=== PATIENT | female | born 1980 | race Caucasian/White ===

== ENCOUNTER 2016-06-04 04:59 | Inpatient (IN) ==
[2016-06-04] MEDS ORDERED: KEFZOL 1 GM/D5W 1 GM/50 ML IVPB IV PRN (05:01)
[2016-06-04] MEDS ORDERED: LR 1,000 ML IV SCH ×2 (05:01→12:05)
[2016-06-04] MEDS ORDERED: REGLAN PO ONE (05:01)
[2016-06-04] MEDS ORDERED: PEPCID PO ONE (05:01)
[2016-06-04] MEDS ORDERED: BICITRA PO ONE ×4 (06:15→06:45)
[2016-06-04] MEDS ORDERED: PEPCID IV ONE (06:15)
[2016-06-04] MEDS ORDERED: HEMABATE ONE (06:16)
[2016-06-04] MEDS ORDERED: METHERGINE ONE (06:17)
[2016-06-04 06:30] LABS: MANUAL DIFF NEEDED? NO
[2016-06-04] MEDS ORDERED: DURAMORPH ONE (06:30)
[2016-06-04] MEDS ORDERED: FENTANYL ONE (06:30)
[2016-06-04] MEDS ORDERED: PITOCIN 20 UNITS/LR 20 UNITS/1,000 ML IV.SOLN ONE (06:30)
[2016-06-04] MEDS ORDERED: TORADOL ONE (06:30)
[2016-06-04] MEDS ORDERED: ZOFRAN ONE (06:30)
[2016-06-04] MEDS ORDERED: PITOCIN ONE ×2 (06:30→07:29)
[2016-06-04] MEDS ORDERED: BENADRYL ONE (06:30)
[2016-06-04 06:32] LABS: BASO% 0.2 % (0.0-0.8); EOS# 0.09 X1000 (0.0-0.7); EOS% 0.8 % (0.0-10.0); HEMOGLOBIN 11.7 g/dL (12.0-16.0); IMM GRAN# 0.15 X1000 (0.0-0.04); IMM GRAN% 1.4 % (0.0-0.5); LYMPH# 1.44 X1000 (1.2-3.4); MCH 30.3 PG (27-31); MCHC 32.5 g/dL (33-37); MCV 93.3 FL (81-99); MONO% 7.2 % (1.7-9.3); MPV 11.7 FL (7.4-10.4); NEUT% 77.4 % (42.2-75.2); PLT 110 X1000 (130-400); RBC 3.86 XMIL (4.2-5.4)
[2016-06-04] MEDS ORDERED: STADOL ONE (06:45)
[2016-06-04] MEDS ORDERED: VERSED ONE (06:46)
--- NOTE | 2016-06-04 07:08 | HISTORY AND PHYSICAL ---
CHIEF COMPLAINT: Here for scheduled section. HISTORY OF PRESENT ILLNESS: Patient is a 35-year-old, G2, P1-0-0-1 at 39 weeks and 4 days by her last menstrual period consistent with an early ultrasound with a due date of , who is here today for planned repeat . She had an elective primary in 2010 due to the macrosomia, and this baby is also measuring large. Patient has no complaints at this time other than significant anxiety. She denies contractions, vaginal bleeding, or loss of fluid. The baby is moving well. PAST MEDICAL HISTORY: 1. Significant for anxiety disorder with no medical treatment. 2. History of nephrolithiasis. 3. Blood type Rh negative, RhoGAM given on 03/22/2016. 4. Anemia of . PAST SURGICAL HISTORY: 1. x1 in 2010. 2. Oral surgery. [place] teeth were removed in 2013. OB HISTORY: 1. 1 prior delivery, 01/04/2011 which was at [address] Andrade. He was 9 pounds 9 ounce male, no complications. PODIATRY ASSISTANT HISTORY: 10/28/2014 Pap smear negative with high risk HPV negative. ALLERGY: No known drug allergies. MEDICATIONS: vitamins and Fusion Plus FAMILY HISTORY: None. SOCIAL HISTORY: She lives with her spouse and son. 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 Alcohol use denies. Drug use denies. High School level of education, high school graduate. Marital status is , and tobacco use never smoker. REVIEW OF SYSTEMS: Positive only for anxiety. PHYSICAL EXAM: VITAL SIGNS: Afebrile with stable vital signs. NST is reactive and reassuring. GENERAL: Patient is awake, alert, and oriented. In no acute distress. CHEST: Clear to auscultation bilaterally. CARDIOVASCULAR: Regular rate and rhythm. ABDOMEN: Soft, gravid, and nontender with a well-healed Pfannenstiel incision. The cervical exam was deferred. EXTREMITIES: 1+ trace to 1+ pitting edema. LABS: From her , group B Strep is negative. Quad screen was low risk. Blood type was Rh negative. She got RhoGAM. Hemoglobin/hematocrit in March was 10.7 and 32.1. Current hemoglobin/hematocrit is 11.7 and 36.0. ASSESSMENT AND PLAN: Gail is a 35-year-old, G2, P-1-0-0-1, at 39 weeks and 4 day for scheduled section. The risks of the surgery reviewed including, but not limited to, bleeding, infection, injury to other organs, possibility of blood clots and blood transfusion, risk of anesthesia, hysterectomy and . Patient stated understanding and desires to proceed. She plans to have circumcision for her baby boy and we are ironer or presser to the OR. cc: Hina Lancaster MD MTDD
[2016-06-04] MEDS ORDERED: NEO-SYNEPHRINE ONE (07:29)
[2016-06-04] MEDS ORDERED: PITOCIN IM PRN (08:09)
[2016-06-04] MEDS ORDERED: DEMEROL IM PRN (08:09)
[2016-06-04] MEDS ORDERED: AMBIEN PO PRN (08:09)
[2016-06-04] MEDS ORDERED: HYDROXYZINE IM PRN (08:09)
[2016-06-04] MEDS ORDERED: BOOSTRIX VACCINE IM ONE (08:09)
[2016-06-04] MEDS ORDERED: DULCOLAX PR PRN ×2 (08:09→12:08)
[2016-06-04] MEDS ORDERED: PITOCIN 20 UNITS/LR 20 UNITS/1,000 ML IV.SOLN IV ONE ×2 (08:09→12:08)
[2016-06-04] MEDS ORDERED: MOTRIN PO PRN (08:09)
[2016-06-04] MEDS ORDERED: PERCOCET-5 PO PRN (08:09)
[2016-06-04] MEDS ORDERED: CYTOTEC PO PRN (08:09)
[2016-06-04] MEDS ORDERED: MYLICON PO PRN (08:09)
[2016-06-04] MEDS ORDERED: DEMEROL PO PRN ×2 (08:09)
[2016-06-04] MEDS ORDERED: M-M-R II VACCINE SUBQ ONE (08:09)
[2016-06-04] MEDS ORDERED: PERCOCET-10 PO PRN (08:09)
[2016-06-04] MEDS ORDERED: PHENERGAN IM PRN (08:09)
[2016-06-04] MEDS ORDERED: HYDROXYZINE PO PRN ×2 (08:09→12:05)
[2016-06-04] MEDS ORDERED: PITOCIN 10 UNITS/LR 10 UNIT/1,000 ML IV.SOLN IV SCH (08:15)
[2016-06-04 08:16] LABS: URINE SOURCE VOIDED
[2016-06-04] MEDS ORDERED: ZOFRAN ODT PO PRN (08:31)
[2016-06-04] MEDS ORDERED: ZOFRAN IV PRN ×3 (08:31→12:05)
[2016-06-04] MEDS ORDERED: NARCAN INJ PRN (08:31)
[2016-06-04 08:32] LABS: BILIRUBIN URINE NEGATIVE (NEGATIVE); BLOOD URINE NEGATIVE (NEGATIVE); CLARITY CLEAR (CLEAR); COLOR YELLOW; GLUCOSE URINE NEGATIVE (NEGATIVE); LEUKOCYTES URINE TRACE (NEGATIVE); NITRITE URINE NEGATIVE (NEGATIVE); PROTEIN URINE NEGATIVE (NEGATIVE); UROBILINOGEN URINE NORMAL
[2016-06-04] MEDS ORDERED: MYLICON PO SCH (09:00)
[2016-06-04] MEDS ORDERED: PHENERGAN IV ONE (09:31)
[2016-06-04] MEDS ORDERED: SODIUM CHLORIDE 0.9% INJ ONE (09:31)
[2016-06-04] MEDS: PRECARE PO SCH (10:06)
--- NOTE | 2016-06-04 10:42 | OPERATIVE NOTE ---
PROCEDURE DATE: 06/04/2016 PREPROCEDURE DIAGNOSES: 1. 2 para 1-0-0-1 at 39 weeks and 4 days. 2. Prior section x1. 3. Desires repeat section. POSTOPERATIVE DIAGNOSES: 1. 2 para 2, status post repeat low uterine transverse section. 2. Pelvic adhesions to lower uterine segment. PROCEDURE PERFORMED: Repeat low uterine transverse with lysis of adhesions. SURGEON: Dr. Hina Lancaster. BRAKE SPECIALIST SURGEON: Dr. Lawson Olvera and Kaylan, Medical Student. ANESTHESIA: Spinal. FINDINGS: There were filmy and dense adhesions of the lower pelvic peritoneum and the bladder to the uterus. There was clear fluid upon amnion rupture. Male infant in vertex presentation weighing 8 pounds 11 ounces with Apgars 8 at one minute, 9 at five minutes. Otherwise normal- appearing uterus, tubes, and ovaries. COMPLICATIONS: None. ESTIMATED BLOOD LOSS: 700 mL. SPECIMENS: Placenta was discarded. DRAINS: Ramos with clear urine at the end of the case. DESCRIPTION OF PROCEDURE: The patient was taken to the operating room where she was properly prepped and draped in the normal sterile fashion in the dorsal supine position. Adequate anesthesia was noted and a Pfannenstiel skin incision was made through the patient's previous scar, and carried down to the underlying layer of fascia sharply. Fascia was incised in the midline and extended laterally with Wilkins scissors. Terry clamps x2 were then used to elevate the superior aspect of the fascial incision and the rectus muscles were dissected off sharply. Attention was then turned to the inferior aspect of the fascial incision. The rectus muscles were dissected off in a similar manner. The peritoneum at this time was then tented up and entered sharply. The peritoneum was stretched, and filmy as well as dense adhesions were noted on the lower aspect of the uterine incision. These were tented up, and bluntly and sharply dissected without any complications. Once the bladder blade was inserted, the low segment was able to be visualized and a transverse incision was made with a scalpel. Copious clear fluid was noted upon amnion rupture. The low segment was extended digitally and the baby was then delivered from a vertex presentation without any complications. Baby was bulb suctioned. Cord was clamped and cut, and the baby was handed off to the waiting nursery staff. Cord blood was obtained and the placenta was then massaged from the uterus. Uterus was exteriorized, cleared of all clots and debris, and the uterine incision was closed with a #1 chromic in a running, locked fashion. A cuiram-yj-jueod suture was then used to approximately midline to help maintain hemostasis. Once this was done, the uterus was tilted forward. The abdomen was cleared of clots and debris. The uterus was tilted back and returned to the abdomen. The gutters were cleared of all clots and debris. The peritoneum was started to be closed with a 2-0 Polysorb. We noted a little bit more blood in the abdomen so the peritoneal closure was stopped and attention was then turned to the low segment again. There was three reinforcing [id number] sutures placed along the uterine incision and then excellent hemostasis was noted. There were a few small bleeders on the posterior side of the adhesions that were taken down. Decision was made to place some Gelfoam in there after the area was irrigated. Small Bovie coagulation was used as well. Once satisfied with hemostasis, the rectus muscles were noted to be too far apart to attempt closure so the fascia was then closed with a #1 PDS starting from each apex and tying [id number] in the midline. The wound at this time was then copiously irrigated and maintained hemostatic with the Bovie. Four interrupted sutures of 2-0 plain gut were then used to reapproximate the subcutaneous tissues. The skin was closed with a 4-0 Biosyn on a [place] needle. Patient tolerated the procedure well. All sponge, lap, and needle counts were correct x3. The patient went to recovery in stable condition. cc: Hina Lancaster MD
[2016-06-04] MEDS: BENADRYL IV PRN ×2 (11:16→11:54)
[2016-06-04] MEDS ORDERED: NARCAN 0.4 MG in LR 1,000 ML IV PRN (12:05)
[2016-06-04] MEDS ORDERED: NARCAN IV PRN (12:05)
[2016-06-04] MEDS ORDERED: SODIUM CHLORIDE 0.9% INJ PRN (12:05)
[2016-06-04] MEDS ORDERED: PHENERGAN IV PRN (12:05)
[2016-06-04] MEDS ORDERED: BENADRYL IV PRN (12:05)
[2016-06-04] MEDS: MYLICON PO SCH ×3 (15:27→21:00)
[2016-06-04] MEDS: HYDROXYZINE PO PRN ×2 (18:03→23:52)
[2016-06-04] MEDS: PITOCIN 10 UNITS/LR 10 UNIT/1,000 ML IV.SOLN IV SCH (20:59)
[2016-06-04] MEDS ORDERED: PERICOLACE PO SCH (21:00)
[2016-06-05] MEDS: PITOCIN 10 UNITS/LR 10 UNIT/1,000 ML IV.SOLN IV SCH (04:56)
[2016-06-05] MEDS: MOTRIN PO PRN ×3 (04:57→20:22)
[2016-06-05] MEDS: NORCO-5 PO PRN ×3 (04:57→16:48)
[2016-06-05] MEDS: MYLICON PO PRN ×3 (04:57→11:02)
[2016-06-05 05:48] LABS: MANUAL DIFF NEEDED? NO
[2016-06-05 05:56] LABS: BASO% 0.1 % (0.0-0.8); EOS# 0.05 X1000 (0.0-0.7); EOS% 0.3 % (0.0-10.0); HEMATOCRIT 32.7 % (37.0-47.0); HEMOGLOBIN 10.5 g/dL (12.0-16.0); IMM GRAN# 0.11 X1000 (0.0-0.04); IMM GRAN% 0.7 % (0.0-0.5); LYMPH# 0.94 X1000 (1.2-3.4); MCH 29.9 PG (27-31); MCHC 32.1 g/dL (33-37); MCV 93.2 FL (81-99); MONO# 1.25 X1000 (0.11-0.59); MONO% 7.9 % (1.7-9.3); MPV 11.9 FL (7.4-10.4); PLT 118 X1000 (130-400); RBC 3.51 XMIL (4.2-5.4)
[2016-06-05] MEDS: PRECARE PO SCH (08:08)
[2016-06-05] MEDS: MYLICON PO SCH ×4 (08:08→20:22)
[2016-06-05] MEDS ORDERED: LR 1,000 ML IV SCH ×2 (08:09→12:09)
[2016-06-05] MEDS: NORCO-10 PO PRN ×2 (12:43→20:22)
--- NOTE | 2016-06-05 15:32 | PROGRESS NOTE ---
DATE: 06/05/2016 SUBJECTIVE: She is postoperative and day 1. She is without complaints. PHYSICAL EXAMINATION: Vital signs are stable. She is afebrile. Physical examination within normal limits. Incision is slightly tender. Bandage is dry. Lower extremity edema +2. LABORATORIES: Hemoglobin 10.5, down from 11.7. PLAN: We will continue routine postoperative and care. cc: MD Hina Joe MD
[2016-06-06] MEDS: NORCO-10 PO PRN (02:55)
[2016-06-06] MEDS: MOTRIN PO PRN (06:03)
[2016-06-06 07:29] VITALS: BP 112/63
[2016-06-06] MEDS: NORCO-5 PO PRN (08:38)
[2016-06-06] MEDS: MYLICON PO SCH ×2 (09:15→10:04)
[2016-06-06] MEDS: PRECARE PO SCH (09:15)
--- NOTE | 2016-06-07 09:59 | DISCHARGE SUMMARY ---
ADMISSION DATE: 06/04/2016 DISCHARGE DATE: 06/06/2016 ADMITTING DIAGNOSES: 1. Intrauterine at 39 weeks. 2. Anxiety disorder. 3. History of kidney stones. 4. Rh negative. 5. Anemia of . DISCHARGE DIAGNOSES: 1. Intrauterine at 39 weeks. 2. Anxiety disorder. 3. History of kidney stones. 4. Rh negative. 5. Anemia of . 6. Status post repeat section. PROCEDURE: Repeat section. HISTORY OF PRESENT ILLNESS: Patient is a 35-year-old G2, P1, with intrauterine at 39 weeks and 4 days. The patient presented for repeat section. The risks , benefits, and alternatives were discussed and the patient desires to proceed. Please see full operative report for details. Postoperatively, the patient was transferred to the floor for routine postoperative care. On postop day #1, Ramos catheter was discontinued. Patient demonstrated the ability to void. Hematocrit returned 32.7. On postop day #2 the patient was ambulating without difficulty, tolerating regular diet with return of flatus and was felt to be stable for discharge home. DISCHARGE DISPOSITION: The patient is discharged home. PRIMARY PROCEDURE: Repeat section. FOLLOWUP: The patient is to followup in 1 week for postoperative visit. cc: MD Hina Vargas MD MTDD
== END 2016-06-06 11:50 | disposition home or self-care (01) ==
LOC: P.LD 04:59
PROVIDERS: ADMIT Obstetrics & Gynecology; ATTEND Obstetrics & Gynecology